=== PATIENT | male | born 1965 | race Native Hawaiian/Other Pacific Islander ===

== ENCOUNTER 2016-08-15 09:28 | Emergency (ER) | payer SELFPAY ==
[2016-08-15] MEDS ORDERED: ZOFRAN ONE (09:57)
[2016-08-15] MEDS ORDERED: ZOFRAN IV ONE (10:06)
[2016-08-15] MEDS ORDERED: DILAUDID IV ONE (10:51)
[2016-08-15] MEDS ORDERED: NACL 0.9% 1000 ML 1,000 ML IV ONE (10:52)
--- NOTE | 2016-08-15 10:52 | Emergency Department Report ---
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 He is previously unknown to me. Reports history of kidney stones 10 years ago. He presents to the ER with left flank pain that radiates down to the left lower quadrant and left testicle. It started this morning. No irritative or obstructive urinary symptoms. Positive nausea. Apparently called 911. ems notes not available at time of chart dictation Pain has no exacerbating or relieving factors. There is no extremity weakness or numbness. There is no chest pain or shortness of breath. -: Gradual Location: abdomen Radiation: flank Quality: aching Consistency: constant Improves with: none Worsens with: none Associated Symptoms: nausea/vomiting. denies: confusion, chest pain, diaphoresis, fever/chills, headaches, loss of appetite, malaise, shortness of breath, syncope, weakness - Related Data Previous Rx's Medication Instructions Recorded Last Taken Type Cefpodoxime Proxetil 100 mg PO Q12HR #14 tablet 08/15/16 Unknown Rx Ketorolac [Toradol] 10 mg PO Q6H PRN #20 tablet 08/15/16 Unknown Rx Ondansetron [Zofran Odt] 4 mg PO QID PRN #20 tab.rapdis 08/15/16 Unknown Rx Tamsulosin [Flomax] 0.4 mg PO QDAY #30 cap 08/15/16 Unknown Rx oxyCODONE [Roxicodone] 5 mg PO Q6HR PRN #15 tablet 08/15/16 Unknown Rx Allergies Allergy/AdvReac Type Severity Reaction Status Date / Time No Known Allergies Allergy Verified 08/15/16 10:02 ED Review of Systems ROS: Stated complaint: LFT FLANK PAIN Other details as noted in HPI Constitutional: denies: fever Eyes: denies: vision change ENT: denies: epistaxis Respiratory: denies: cough Cardiovascular: denies: palpitations Gastrointestinal: abdominal pain, nausea Genitourinary: testicular pain Musculoskeletal: denies: back pain Skin: denies: rash Neurological: denies: weakness Psychiatric: denies: depression ED Past Medical Hx - Past Medical History Previous Medical History?: Yes Additional medical history: kidney stones - Surgical History Past Surgical History?: No - Social History Smoking Status: Never Smoker Substance Use Type: None - Medications Home Medications: Home Medications Medication Instructions Recorded Confirmed Last Taken Type Cefpodoxime Proxetil 100 mg PO Q12HR #14 tablet 08/15/16 Unknown Rx Ketorolac [Toradol] 10 mg PO Q6H PRN #20 tablet 08/15/16 Unknown Rx Ondansetron [Zofran Odt] 4 mg PO QID PRN #20 tab.rapdis 08/15/16 Unknown Rx Tamsulosin [Flomax] 0.4 mg PO QDAY #30 cap 08/15/16 Unknown Rx oxyCODONE [Roxicodone] 5 mg PO Q6HR PRN #15 tablet 08/15/16 Unknown Rx ED Physical Exam - General Limitations: Language Barrier General appearance: alert, in no apparent distress - Head Head exam: Present: atraumatic, normocephalic - Eye Eye exam: Present: normal appearance, EOMI. Absent: nystagmus - ENT ENT exam: Present: normal exam, normal orophraynx, mucous membranes moist, normal external ear exam - Neck Neck exam: Present: normal inspection, full ROM. Absent: tenderness, meningismus - Respiratory Respiratory exam: Present: normal lung sounds bilaterally. Absent: respiratory distress, wheezes, rales, rhonchi, stridor, decreased breath sounds - Cardiovascular Cardiovascular Exam: Present: regular rate, normal rhythm, normal heart sounds. Absent: bradycardia, tachycardia, irregular rhythm, systolic murmur, diastolic murmur, rubs, gallop - GI/Abdominal GI/Abdominal exam: Present: soft, normal bowel sounds. Absent: distended, tenderness, guarding, rebound, rigid, pulsatile mass - Rectal Rectal exam: Present: deferred - exam: Present: normal inspection, testicular tenderness External exam: Present: normal external exam, other (the left testicle is tender. It has a normal testicular lie. There is normal cremasteric reflex bilaterally). Absent: erythema, swelling, bleeding - Extremities Exam Extremities exam: Present: normal inspection, full ROM, normal capillary refill. Absent: tenderness, pedal edema, joint swelling, calf tenderness - Back Exam Back exam: Present: normal inspection, full ROM. Absent: tenderness, CVA tenderness (R), CVA tenderness (L), muscle spasm, paraspinal tenderness, vertebral tenderness - Neurological Exam Neurological exam: Present: alert, normal gait, other (Extraocular movements intact. Tongue midline. No facial droop. Facial sensation intact to light touch in the V1, V2, V3 distribution bilaterally. 5 and 5 strength in 4 extremities.. Sensation is intact to light touch in 4 extremities.). Absent: motor sensory deficit - Psychiatric Psychiatric exam: Present: normal affect, normal mood - Skin Skin exam: Present: warm, dry, intact, normal color. Absent: rash ED Course Vital Signs 08/15/16 08/15/16 08/15/16 09:51 10:00 10:06 Temperature 97.6 F Pulse Rate 74 Respiratory 20 Rate Blood Pressure 162/112 148/89 O2 Sat by Pulse 100 100 98 Oximetry 08/15/16 08/15/16 08/15/16 10:09 10:10 10:16 Temperature Pulse Rate Respiratory 18 Rate Blood Pressure 148/89 148/89 O2 Sat by Pulse 98 99 Oximetry 08/15/16 08/15/16 08/15/16 10:20 10:26 10:30 Temperature Pulse Rate Respiratory Rate Blood Pressure 148/89 148/89 148/89 O2 Sat by Pulse 98 97 100 Oximetry 08/15/16 08/15/16 08/15/16 10:36 10:40 10:46 Temperature Pulse Rate Respiratory Rate Blood Pressure 148/89 148/89 148/89 O2 Sat by Pulse 100 97 97 Oximetry 08/15/16 08/15/16 08/15/16 10:58 11:51 12:00 Temperature Pulse Rate Respiratory 18 18 Rate Blood Pressure 130/81 138/77 O2 Sat by Pulse Oximetry 08/15/16 08/15/16 08/15/16 12:14 12:30 12:44 Temperature Pulse Rate Respiratory 18 18 Rate Blood Pressure 138/77 O2 Sat by Pulse 96 Oximetry 08/15/16 08/15/16 08/15/16 13:00 13:30 14:00 Temperature Pulse Rate Respiratory Rate Blood Pressure 128/77 128/77 129/81 O2 Sat by Pulse 96 98 97 Oximetry - Reevaluation(s) Reevaluation #1: 08/15/16 11:01 Differential diagnosis: Renal colic, testicular torsion, orchitis, epididymitis , constipation, hernia Assessment and plan: 51-year-old male with flank pain and testicular pain, most likely recurrent renal colic. Walks with a steady gait. Laboratory studies, ultrasound, CT scan ordered. Reevaluation #2: 08/15/16 13:08 Patient feels improved. He is tolerating liquid feeds. CT scan demonstrates left-sided obstructing kidney stone. Testicular ultrasound is unremarkable. The urinalysis is equivocal for urinary tract infection. The case is discussed with the urology specialist division human resources manager, Dr. Walden. Patient will be loaded with 1 g of ceftriaxone, discharged with Cefpodoxime, discharged with Flomax, pain medication, nausea medication. Urology specialist agrees with this plan of care, and indicates that he can follow the patient up. This was discussed with the patient, who verbalized understanding. He will be discharged at this time. Return precautions are extensively reviewed. ED Medical Decision Making - Lab Data Result diagrams: 08/15/16 11:52 08/15/16 11:52 Vital Signs 08/15/16 08/15/16 08/15/16 09:51 10:00 10:06 Temperature 97.6 F Pulse Rate 74 Respiratory 20 Rate Blood Pressure 162/112 148/89 O2 Sat by Pulse 100 100 98 Oximetry 08/15/16 08/15/16 08/15/16 10:09 10:10 10:16 Temperature Pulse Rate Respiratory 18 Rate Blood Pressure 148/89 148/89 O2 Sat by Pulse 98 99 Oximetry 08/15/16 08/15/16 08/15/16 10:20 10:26 10:30 Temperature Pulse Rate Respiratory Rate Blood Pressure 148/89 148/89 148/89 O2 Sat by Pulse 98 97 100 Oximetry 08/15/16 08/15/16 08/15/16 10:36 10:40 10:46 Temperature Pulse Rate Respiratory Rate Blood Pressure 148/89 148/89 148/89 O2 Sat by Pulse 100 97 97 Oximetry 08/15/16 10:58 Temperature Pulse Rate Respiratory 18 Rate Blood Pressure O2 Sat by Pulse Oximetry - Radiology Data Radiology results: report reviewed, image reviewed Testicular ultrasound negative for acute disease. CT scan demonstrates a 5.4 mm calculus at the left UVJ, mildly obstructing. Otherwise, no acute disease. Critical care attestation.: If time is entered above; I have spent that time in minutes in the direct care of this critically ill patient, excluding procedure time. ED Disposition Clinical Impression: Renal colic on left side Disposition: DISCHARGED TO HOME OR SELFCARE Is pt being admited?: No Does the pt Need Aspirin: No Condition: Stable Instructions: Renal Colic (ED) Additional Instructions: Take the pain medication, nausea medication, antibiotic therapy as directed. Follow-up with a urology specialist within the next 7-[address] Walden is a local urology specialist. If taking the oxycodone for pain, do not drive, consume alcohol, or make important decisions. Return to the ER right away with new pain, worsened pain, migration of pain, fevers or chills, intractable nausea or vomiting, inability to tolerate liquid feeds, new, worsening or different symptoms. [place] el medicamento para el dolor, la medicacin para las nuseas, la terapia con antibiticos segn las indicaciones. Seguimiento con un especialista en urologa dentro de los prximos 7-10 titus. [address] Dra. Walden es especialista local en urologa. Si kenia la oxicodona para el dolor, no conduzca, consuma alcohol, ni tome decisiones importantes. Volver a la urgencia con dolor nuevo, dolor agravado, migracin de dolor, fiebre o escalofros, nuseas o vmitos intratables, incapacidad para tolerar alimentos lquidos, sntomas nuevos, empeorados o diferentes. Prescriptions: Cefpodoxime Proxetil 100 mg PO Q12HR #14 tablet Ketorolac [Toradol] 10 mg PO Q6H PRN #20 tablet PRN Reason: Pain Ondansetron [Zofran Odt] 4 mg PO QID PRN #20 tab.rapdis PRN Reason: Nausea oxyCODONE [Roxicodone] 5 mg PO Q6HR PRN #15 tablet PRN Reason: Pain Tamsulosin [Flomax] 0.4 mg PO QDAY #30 cap Referrals: PRIMARY CARE,MD [Primary Care Provider] - 3-5 Days AMY WALDEN MD [Staff Physician] - 3-5 Days
[2016-08-15 11:17] LABS: Bilirubin,Urine NEG (Negative); Blood,Urine LG (Negative); Ketones,Urine NEG (Negative); Leukocyte Esterase,Urine TR (Negative); Nitrite,Urine NEG (Negative); Urobilinogen,Urine < 2.0 mg/dL (<2.0)
[2016-08-15 11:26] LABS: RBC,Urine > 182.0 /HPF (0.0-6.0)
[2016-08-15 11:28] LABS: Bacteria,Urine 1+ /HPF (Negative)
--- NOTE | 2016-08-15 11:51 | Cat Scan Report ---
CT OF THE ABDOMEN AND PELVIS WITHOUT CONTRAST HISTORY: Left flank pain. TECHNIQUE: Helical CT without contrast. Sagittal and coronal reformatted images. FINDINGS: A 5.4 mm calculus is identified along the intramural portion of the left UVJ. There is mild left hydronephrosis. A 4 mm nonobstructing calyceal stone is noted at the inferior pole of left kidney. A 1 mm calyceal stone is noted in the mid right kidney. No evidence for renal cystic disease, mass or perinephric fluid. The bladder is unremarkable. The liver, biliary system, pancreas, spleen, adrenal glands, bowel loops and appendix are unremarkable. Normal aorta. Heart size is within normal limits. The visualized lung bases are clear. No suspicious bony lesion or fracture. IMPRESSION: Bilateral nephrolithiasis. 5.4 mm calculus at the left UVJ, mildly obstructing.
--- NOTE | 2016-08-15 11:57 | Ultrasound Report ---
ULTRASOUND SCROTAL INDICATION: Left testicular pain. COMPARISON: None similar. FINDINGS: Longitudinal and transverse grayscale and color flow sonographic evaluation of the scrotum and its contents demonstrates normal testicular contour and echotexture bilaterally without suspicious intrinsic lesions. Preserved bilateral blood flow. Right testicle estimated at 3.9 x 1.9 x 2.2 cm while the left testicle is 3.5 x 1.7 x 2.4 cm. Minimal bilateral hydroceles. Unremarkable, 1.3 x 0.5 cm right epididymis, image 13. Approximately 1.2 x 0.7 cm left epididymis demonstrates at least 2 small cysts measuring approximately 2 mm each. CONCLUSION: Small bilateral hydroceles and tiny left epididymal head cysts incidentally noted without acute testicular sonographic abnormality, as described. Thank you for the opportunity to participate in this patient's care.
[2016-08-15] MEDS ORDERED: MORPHINE IV ONE (12:09)
[2016-08-15 12:11] LABS: Hematocrit 42.3 % (35.5-45.6); Hemoglobin 14.3 gm/dl (11.8-15.2); Mean Corpuscular HGB Conc 34 % (32-34); Mean Corpuscular Hemoglobin 31 pg (28-32); Mean Corpuscular Volume 92 fl (84-94); Platelet Count 210 K/mm3 (140-440); Red Blood Count 4.58 M/mm3 (3.65-5.03); Red Cell Distribution Width 13.3 % (13.2-15.2); White Blood Count 11.5 K/mm3 (4.5-11.0)
[2016-08-15 12:40] LABS: Anion Gap 18 mmol/L; BUN/Creatinine Ratio 22.85; Blood Urea Nitrogen 16 mg/dL (9-20); Calcium 8.9 mg/dL (8.4-10.2); Carbon Dioxide 26 mmol/L (22-30); Chloride 102.8 mmol/L (98-107); Glucose 115 mg/dL (75-100); Potassium 3.7 mmol/L (3.6-5.0); Sodium 143 mmol/L (137-145)
[2016-08-15] MEDS ORDERED: ROCEPHIN/NS 1 GM/50 ML 1 GM/50 ML BAG IV ONE (13:09)
[2016-08-15 14:18] VITALS: BP 129/81
== END 2016-08-15 14:30 | disposition home or self-care (01) ==
LOC: ED 09:28
DX: N23 Unspecified renal colic (principal)
CPT/HCPCS: 36415; 74176; 80048; 81001; 85027; 93975; 96361; 96365; 96375; 99284; J0696; J1170; J2270; J2405; J7030